=== PATIENT | female | born 1945 | race Two or more races ===

== ENCOUNTER 2021-02-28 01:38 | Emergency (ER) | payer OTHER ==
[~2021-02-28] VITALS: Ht 167.6 cm; Wt 86.7 kg
[2021-02-28] MEDS ORDERED: MECLIZINE HCL 25 MG TABLET ONE (02:22)
[2021-02-28] MEDS: IV NORMAL SALINE 1000 ML BAG IV ONE (03:06)
[2021-02-28] MEDS: MECLIZINE HCL 25 MG TABLET PO ONE (03:06)
[2021-02-28 03:14] LABS: MEAN CORPUSCULAR HEMOGLOBIN 29.2 uug (24.7-32.8); MEAN CORPUSCULAR VOLUME 88.1 fL (75.5-95.3); PLATELET COUNT (AUTO) 305 K/uL (179-408)
[2021-02-28 03:29] LABS: CREATININE 0.8 mg/dL (0.6-1.3)
[2021-02-28 03:35] LABS: BILIRUBIN,TOTAL 0.4 mg/dL (0.2-1.0); TOTAL PROTEIN, SERUM 7.5 g/dL (6.4-8.2)
--- NOTE | 2021-02-28 03:57 | NUR ---
Pt returned from CT
[2021-02-28 04:45] LABS: *BILIRUBIN,URIN NEGATIVE (NEGATIVE); *BLOOD, URINE NEGATIVE (NEGATIVE); *CLARITY,URINE CLEAR (CLEAR); *KETONES,URINE NEGATIVE (NEGATIVE); *UROBILINOGEN,URINE 0.2 E.U./dl (NORMAL); LEUKOCYTE ESTERASE ,URINE NEGATIVE (NEGATIVE); NITRITE, URINE NEGATIVE (NEGATIVE); PH,URINE 5.5 (5.0-8.0); UGLUCOSE NEGATIVE (NEGATIVE)
[2021-02-28 04:47] LABS: *COLOR,URINE STRAW (YELLOW)
--- NOTE | 2021-02-28 05:01 | NUR ---
IV removed. Catheter intact and site benign. Pressure and 4x4 gauze applied to site. No bleeding noted.
--- NOTE | 2021-02-28 05:27 | NUR ---
Patient discharged to home in stable condition with Taxi taking patient home. Written and verbal after care instructions given. Patient verbalizes understanding of instructions. Stressed follow up or return to ER for worsening s/s.
[2021-02-28 05:29] VITALS: BP 118/70
== END 2021-02-28 05:29 | disposition home or self-care (01) ==
LOC: ER 01:50
DX: R42 Dizziness and giddiness (principal); Z86.73 Personal history of transient ischemic attack (TIA), and cerebral infarction without residual deficits; G43.909 Migraine, unspecified, not intractable, without status migrainosus; Z95.5 Presence of coronary angioplasty implant and graft; E11.9 Type 2 diabetes mellitus without complications; M19.90 Unspecified osteoarthritis, unspecified site; Z88.0 Allergy status to penicillin; Z88.2 Allergy status to sulfonamides; R00.1 Bradycardia, unspecified; R03.0 Elevated blood-pressure reading, without diagnosis of hypertension
CPT/HCPCS: 36415; 70030-TC; 70450; 71045; 85025; 93005; A4663; J8597